=== PATIENT | female | born 1940 | race Caucasian/White ===

== ENCOUNTER 2022-08-19 09:46 | Observation (INO) ==
[~2022-08-19 09:46] MED LIST: Buffered Lidocaine 1% SYRIN 1 ml INTRADERM ONE; HYDROcodone/ACETAMIN 5/325 mg TAB PO PRN; Lactated Ringers 1000 ml BAG 1,000 ML IV SCH; Metoclopramide 5 MG/ML VIAL (10 mg) IV PRN; Naloxone 0.4 mg VIAL 0.4 mg/ml 1 ml VIAL IV PRN; Ondansetron 4 mg VIAL 2 MG/ML 2 ml VIAL IV PRN; ROPIVACAINE 5 MG/ML 30 ML BTL (0.5%) ONE
[2022-08-19] MEDS ORDERED: ceFAZolin 2 GM PREMIX 2 GM/50 ML BAG ONE (11:04)
[2022-08-19] MEDS ORDERED: Buffered Lidocaine 1% SYRIN 1 ml ONE (11:04)
[2022-08-19 11:34] LABS: Rapid COVID-19 Molecular Undetected (Undetected)
[2022-08-19] MEDS ORDERED: ROPIVACAINE 5 MG/ML 30 ML BTL (0.5%) ONE (12:47)
[2022-08-19] MEDS ORDERED: Rocuronium 50 mg VIAL 10 mg/ml 5 ml VIAL (50 mg) ONE (13:04)
[2022-08-19] MEDS ORDERED: fentaNYL 250 mcg/5 ml 50 MCG/ML 5 ml VIAL (250 MCG) ONE (13:04)
[2022-08-19] MEDS ORDERED: Propofol 10 MG/ML 20 ML BTL ONE (13:05)
[2022-08-19] MEDS ORDERED: Dexamethasone IV 4 MG/ML VIAL 1 ml VIAL ONE (13:45)
[2022-08-19] MEDS ORDERED: Ondansetron 4 mg VIAL 2 MG/ML 2 ml VIAL ONE (13:45)
[2022-08-19] MEDS ORDERED: HYDROcodone/ACETAMIN 5/325 mg TAB ONE (16:06)
[2022-08-19] MEDS ORDERED: Ondansetron 4 mg VIAL 2 MG/ML 2 ml VIAL IV PRN (16:46)
[2022-08-19] MEDS ORDERED: Lactulose 30 ml UDC PO PRN (16:46)
[2022-08-19] MEDS ORDERED: Ondansetron ODT 4 mg TAB 4 MG TAB PO PRN (16:46)
[2022-08-19] MEDS ORDERED: Morphine 2 MG/ML SYRINGE IV PRN (16:46)
[2022-08-19] MEDS ORDERED: Magnesium Hydroxide LIQ 30 ML UDC PO PRN (16:46)
[2022-08-19] MEDS ORDERED: fentaNYL 100 mcg/2 ml 50 MCG/ML VIAL ONE ×2 (16:58→17:43)
[2022-08-19] MEDS: fentaNYL 100 mcg/2 ml 50 MCG/ML VIAL IV PRN ×6 (16:59→17:53)
[2022-08-19] MEDS ORDERED: Albuterol HFA INHALER 8 gm MDI INH PRN (17:17)
[2022-08-19] MEDS: Lactated Ringers 1000 ml BAG 1,000 ML IV SCH (18:42)
[2022-08-19] MEDS: Mometasone/Formoter 200/5 MDI INH SCH (20:21)
[2022-08-19] MEDS: Magnesium Hydroxide LIQ 30 ML UDC PO SCH (20:53)
[2022-08-19] MEDS: ceFAZolin 1 GM ADVAN 1 GM in NS 0.9% 50 ML 50 ML IVPB SCH (20:54)
[2022-08-20] MEDS: Lactated Ringers 1000 ml BAG 1,000 ML IV SCH (04:59)
[2022-08-20] MEDS: ceFAZolin 1 GM ADVAN 1 GM in NS 0.9% 50 ML 50 ML IVPB SCH ×2 (05:03→13:34)
[2022-08-20 05:59] LABS: Hematocrit 26.8 % (35-45); Hemoglobin 9.6 g/dL (11.5-14.3); Mean Platelet Volume 6.1 fL (7.5-11.2); Platelet Count 283 10^3/uL (150-450)
[2022-08-20 06:19] LABS: Calcium 8.1 mg/dL (8.6-10.3); Creatinine, Serum 0.83 mg/dL (0.51-0.95); Potassium 4.7 mmol/L (3.5-5.0); eGFR CKD-EPI 71.2 (>60)
[2022-08-20] MEDS: Mometasone/Formoter 200/5 MDI INH SCH ×2 (08:14→19:15)
[2022-08-20] MEDS: Magnesium Hydroxide LIQ 30 ML UDC PO SCH ×2 (08:29→21:10)
[2022-08-20] MEDS: Vitamin THERAPEUTIC TAB PO SCH (08:29)
[2022-08-20] MEDS ORDERED: Lactated Ringers 1000 ml BAG 500 ML IV ONE (10:13)
[2022-08-21 06:56] LABS: Hematocrit 24.6 % (35-45); Hemoglobin 8.6 g/dL (11.5-14.3); Mean Platelet Volume 6.3 fL (7.5-11.2); Platelet Count 260 10^3/uL (150-450)
[2022-08-21] MEDS: Magnesium Hydroxide LIQ 30 ML UDC PO SCH (08:18)
[2022-08-21] MEDS: Mometasone/Formoter 200/5 MDI INH SCH (08:21)
[2022-08-21] MEDS: Vitamin THERAPEUTIC TAB PO SCH (08:21)
[2022-08-21 10:11] VITALS: BP 106/53
== END 2022-08-21 12:30 | disposition home or self-care (01) ==
LOC: OR 09:46 → SSU 09:46
PROVIDERS: ADMIT Orthopaedic Surgery Adult Reconstructive Orthopaedic Surgery; ATTEND Orthopaedic Surgery Adult Reconstructive Orthopaedic Surgery